=== PATIENT | male | born 1955 | race Caucasian/White ===

== ENCOUNTER 2018-05-06 06:58 | Day surgery (SDC) | payer BC ==
[~2018-05-06 06:58] MED LIST: Acetaminophen/HYDROcodone 325-5 MG Tab PO PRN; Lactated Ringers 1,000 ML IV SCH; Ondansetron 4 MG/2 ML SDV IVPUSH PRN
[2018-05-06] MEDS ORDERED: ceFAZolin 1 GM in Sodium Chloride 0.9% 50 ML IV ONE (07:00)
[2018-05-06] MEDS ORDERED: Propofol 200 MG/20 ML SDV ONE (10:00)
[2018-05-06] MEDS ORDERED: Ondansetron 4 MG/2 ML SDV ONE (10:00)
[2018-05-06] MEDS ORDERED: fentaNYL 250 MCG/5 ML SDV ONE (10:00)
[2018-05-06] MEDS ORDERED: CEFAZOLIN 1 GM IV ONE (10:00)
[2018-05-06] MEDS ORDERED: Dexamethasone 4 MG/ML SDV ONE (10:00)
[2018-05-06] MEDS ORDERED: Midazolam 1 MG/ML 5 ML SDV ONE (10:00)
[2018-05-06] MEDS ORDERED: ePHEDrine 50 MG/ML SDV ONE (10:00)
[2018-05-06] MEDS ORDERED: Ketorolac 30 MG/ML SDV ONE (10:00)
[2018-05-06] MEDS ORDERED: Succinylcholine 200 MG/10 ML MDV ONE (10:00)
[2018-05-06] MEDS: Morphine 2 MG/ML Syringe IVPUSH PRN ×2 (11:06→12:54)
--- NOTE | 2018-05-06 12:54 | OR ---
DATE OF OPERATION: 05/06/2018 [facility] SLICER: Edith Gilmore RN. PREOPERATIVE DIAGNOSIS: Umbilical hernia. POSTOPERATIVE DIAGNOSIS: Umbilical hernia.. PROCEDURE: Open umbilical hernia repair with mesh. ANESTHESIA: General. ESTIMATED BLOOD LOSS: Minimal. COMPLICATIONS: None. INDICATION FOR THE PROCEDURE: The patient is a 62-year-old male, who has an umbilical hernia. It is becoming symptomatic for him. He would like it repaired. DESCRIPTION OF PROCEDURE: Informed consent was obtained from the patient. The patient was taken to the operating room, placed on table in supine position. General anesthesia was administered. The patient did receive preoperative antibiotics. The skin overlying the left periumbilical area was infiltrated with local anesthetic. Opening the curvilinear incision carried out with a 15 blade, dissecting down through the subcutaneous tissues with blunt dissection as well as electrocautery. Umbilical hernia was bluntly and sharply dissected away from the umbilicus. The patient did have 2 cm bowel of preperitoneal fat protruding. This was reduced with manual reduction. Fascial defect size approximately 7 mm and this was enlarged slightly with a 15 blade, cutting through the fascia with a 15 blade in order to have adequate access for mesh placement. Using finger sweep and blunt dissection, preperitoneal space was cleared. A 4.3 cm circular self-expanding mesh was then placed within the hernia defect. This was sutured in to place with 2-0 Prolene suture in a parachute fashion. Mesh obliterated the hernia defect nicely. The fascia was then closed with 0 Vicryl suture in a simple interrupted fashion. Wound was irrigated and dried. No active bleeding was seen. The umbilicus tacked down to the fascia with 2-0 Vicryl. The subcutaneous tissue was reapproximated with 2-0 Vicryl. Deep dermal layer was closed with 3- 0 Vicryl. Skin was closed with 4-0 Monocryl in a running, subcuticular fashion. Mastisol, Steri-Strips, and sterile dressings were applied. At the end of the case, all sponge count, needle count, and instrument counts were correct. The patient tolerated the procedure well, was extubated, and brought to the recovery room in good condition. ASHU/JASS /[id number]
[2018-05-06 14:07] VITALS: BP 151/93
== END 2018-05-06 14:00 | disposition home or self-care (01) ==
LOC: LB.SDS 06:58
PROVIDERS: ATTEND Surgery
DX: K42.9 Umbilical hernia without obstruction or gangrene (principal)
CPT/HCPCS: A9270-GY; C1781; J0330; J0690; J1100; J1885; J2250; J2270; J2405; J2704; J3010; J7050; J7120

== ENCOUNTER 2024-09-08 08:56 | Day surgery (SDC) | payer MEDICARE ==
[~2024-09-08 08:56] MED LIST changes: -Acetaminophen/HYDROcodone 325-5 MG Tab PO PRN; +Clindamycin Phosphate 900 MG/6 ML SDV IV SCH
[2024-09-08] MEDS: Lactated Ringers 1,000 ML IV SCH (09:28)
[2024-09-08] MEDS ORDERED: Propofol 1,000 MG/100 ML SDV ONE (12:15)
[2024-09-08] MEDS ORDERED: fentaNYL 100 MCG/2 ML SDV ONE (12:15)
[2024-09-08 12:46] VITALS: BP 160/106; PULSE 66
[2024-09-08] MEDS: Acetaminophen/HYDROcodone 325-5 MG Tab PO PRN (12:54)
[2024-09-08] MEDS: Morphine 2 MG/ML SYRINGE IVPUSH PRN (13:01)
== END 2024-09-08 14:45 | disposition home or self-care (01) ==
LOC: LB.SDS 08:56
PROVIDERS: ATTEND Surgery
DX: K40.90 Unilateral inguinal hernia, without obstruction or gangrene, not specified as recurrent (principal); I10 Essential (primary) hypertension; E78.00 Pure hypercholesterolemia, unspecified; K21.9 Gastro-esophageal reflux disease without esophagitis; Z87.891 Personal history of nicotine dependence; Z79.82 Long term (current) use of aspirin; Z79.899 Other long term (current) drug therapy
CPT/HCPCS: A9270-GY; C1781; J2270; J2704; J3010; J3490; J7120